=== PATIENT | male | born 1955 | race Caucasian/White ===

== ENCOUNTER 2019-11-05 07:48 | Day surgery (SDC) | payer BC ==
[2019-11-04 16:29] LABS: Absolute Lymphocytes (CBC) 2.4 K/uL (0.7-4.9); Basophils % 0.4 % (0-1.3); Hematocrit 42.4 % (39.6-49.0); Lymphocytes % 20.8 % (15.3-44.8); MPV 8.5 fL (7.6-11.3); RBC Red Blood Cell Count 4.58 M/uL (4.33-5.43)
--- NOTE | 2019-11-04 16:29 | RAD REPORT ---
EXAM DESCRIPTION: RAD - Chest Pa And Lat (2 Views) - 11/04/2019 4:16 pm CLINICAL HISTORY: preop COMPARISON: No comparisons TECHNIQUE: Frontal and lateral views of the chest were obtained. FINDINGS: The lungs are clear. Heart size is normal and central vasculature is within normal limit s. No pleural effusion or pneumothorax seen. No acute bony finding noted. No aortic abnormality. IMPRESSION: No acute cardiopulmonary process.
[2019-11-04 16:47] LABS: Potassium 3.8 mmol/L (3.5-5.1)
[~2019-11-05 07:48] MED LIST: FENTANYL CITR 100 MCG/2 ML ONE; LIDOCAINE 2% MPF 5 ML VIAL ONE; MIDAZOLAM HCL 2 MG/2 ML INJ ONE; propofoL 200 MG/20 ML VIAL IV ONE
[2019-11-05] MEDS ORDERED: Ringers Lactate 1,000 ML IV ONE (08:06)
[2019-11-05] MEDS ORDERED: CEFAZOLIN/SWI 1gm 1 GM/10 ML SYR ONE (08:07)
[2019-11-05] MEDS ORDERED: ONDANSETRON 4 MG/2 ML VIAL ONE (08:59)
[2019-11-05] MEDS: ONDANSETRON 4 MG/2 ML VIAL ONE ×2 (10:12→10:13)
[2019-11-05] MEDS: HYDROMORPHONE HCL 1 MG/ML INJ ONE ×5 (10:15→10:32)
[2019-11-05] MEDS ORDERED: HYDROCODONE/APAP 7.5/325 MG TAB ONE (11:24)
[2019-11-05 11:27] VITALS: BP 132/62; TEMP 98.4; O2SAT 98
--- NOTE | 2019-11-05 12:18 | OP ---
Date of Procedure: 11/05/2019 Surgeon: Miquel Baez MD Preoperative Diagnosis: Inflamed sebaceous cyst on the back. Postoperative Diagnosis: Inflamed sebaceous cyst on the back. Procedure: Wide excision, back mass, 8 x 4 cm, with layered closure. Estimated Blood Loss: Minimal. Specimen: Inflamed sebaceous cyst. Findings: As above. Anesthesia: General. Complications: None. Disposition: Patient tolerated the procedure in stable condition, taken to Recovery in good general condition. Procedure In Detail: Patient was brought to the OR, placed in supine position. General anesthesia b egun. Patient placed in the right lateral position, prepped and draped in the usual sterile fashion. Marcaine 0.5% was infiltrated in a field block fashion. Then, 15 blade was used to make 8 x 4 cm i ncision to excise the entire cyst including the cyst wall in 1 piece down to the subcutaneous tissue and sent to Pathology. Wound irrigated. Bleeding controlled with cautery. A Emiliano drain quarter- inch placed in the wound and secured with 3-0 nylon, then 2-0 chromic used to approximate the subcuta neous tissue, and 2-0 nylon used to close the skin. Sterile dressing was applied. Patient was awake donaldo and taken to Recovery in good general condition. Discharge Note: The patient will be going to Day Surgery in 1 week when stable. Disposition: Home. Condition: Stable. Discharge Instructions: Resume home medications and diet. Activity as tolerated. No heavy lifting. Remove outer dressing in 2 days. Shower. Keep wound clean and dry. Follow up in my office next T , call for appointment. Cipro 500 mg p.o. q.12, Tylenol No. 3 one tablet p.o. q.4 p.r.n. pain. /MODL Voice ID: [id number] Report ID: [id number]
--- NOTE | 2019-11-05 13:45 | EKG ---
Test Date: 2019-11-04 Test Time: 15:54:34 Dentist/Owner: ANA MARIA MEASUREMENT RESULTS: Intervals: Rate: 67 [place]: 166 QRSD: 74 QT: 398 QTc: 420 [place]: P: 45 [place]: 166 QRS: 40 T: 54 INTERPRETIVE STATEMENTS: Normal sinus rhythm Normal ECG No previous ECG available for comparison Electronically Signed On 11-05-19 13:45:06 ELECTRIC NEEDLE SPECIALIST by Soto Padilla
== END 2019-11-05 12:00 | disposition home or self-care (01) ==
LOC: OR 07:48
PROVIDERS: ATTEND Surgery
PROC: 0JB70ZZ Excision of Back Subcutaneous Tissue and Fascia, Open Approach (ICD-10-PCS; principal; 2019-11-05 09:00)
DX: L72.3 Sebaceous cyst (principal); E07.9 Disorder of thyroid, unspecified
CPT/HCPCS: 93005; 85025; 80048; 36415; 88304; 71046; 11406; J2704; J2250; J3010; J1170 ×2; J0690; J7120; J2405 ×2

== ENCOUNTER 2020-12-15 09:57 | Emergency (ER) | payer BC ==
[2020-12-15] MEDS ORDERED: ONDANSETRON 4 MG/2 ML VIAL ONE (10:54)
[2020-12-15] MEDS ORDERED: NA CHLORIDE 0.9% 0 ML ONE (10:54)
[2020-12-15] MEDS ORDERED: MECLIZINE HCL 12.5 MG TAB ONE (10:54)
[2020-12-15] MEDS ORDERED: FAMOTIDINE 20 MG/2 ML VIAL IV ONE (10:54)
[2020-12-15 11:19] LABS: Absolute Lymphocytes (CBC) 0.7 K/uL (0.7-4.9); Basophils % 0.1 % (0-1.3); Hematocrit 42.6 % (39.6-49.0); Lymphocytes % 6.3 % (15.3-44.8); MPV 8.6 fL (7.6-11.3); RBC Red Blood Cell Count 4.54 M/uL (4.33-5.43)
[2020-12-15 11:20] LABS: Protime INR 0.97
[2020-12-15 11:31] LABS: ALT/SGPT 46 U/L (12-78); AST/SGOT 18 U/L (15-37); Albumin 3.7 g/dL (3.4-5.0); Alkaline Phosphatase 78 U/L (45-117); BUN Blood Urea Nitrogen 15 mg/dL (7-18); Bicarbonate 25 mmol/L (21-32); Bilirubin Direct 0.1 mg/dL (0-0.2); Bilirubin Total 0.5 mg/dL (0.2-1.0); Glucose Level 128 mg/dL (74-106); Magnesium 1.9 mg/dL (1.8-2.4); NT PRO-BNP 48 pg/mL (<125); Potassium 3.9 mmol/L (3.5-5.1); Protein, Total 7.2 g/dL (6.4-8.2); Sodium Level 140 mmol/L (136-145); Troponin (Emerg Dept Use Only) < 0.02 ng/mL (0.0-0.045)
--- NOTE | 2020-12-15 11:36 | RAD REPORT ---
EXAM DESCRIPTION: CT - Head Brain Wo Cont - 12/15/2020 11:26 am CLINICAL HISTORY: DIZZINESS Headache, drowsiness COMPARISON: No comparisons TECHNIQUE: All CT scans are performed using dose optimization technique as appropriate and may inclu de automated exposure control or mA/KV adjustment according to patient size. FINDINGS: No intracranial hemorrhage, hydrocephalus or extra-axial fluid collection.No areas of brai n edema or evidence of midline shift. The paranasal sinuses and mastoids are clear. The calvarium is intact. IMPRESSION: No acute intracranial abnormality.
--- NOTE | 2020-12-15 11:38 | RAD REPORT ---
EXAM DESCRIPTION: RAD - Chest Single View - 12/15/2020 11:09 am CLINICAL HISTORY: dizziness Chest pain. COMPARISON: Chest Pa And Lat (2 Views) dated 11/04/2019 FINDINGS: Portable technique limits examination quality. The lungs are grossly clear. The heart is normal in size. No displaced fractures. IMPRESSION: No acute intrathoracic process suspected.
[2020-12-15 11:55] LABS: Blood Morphology Comment NOT SEEN (NOT SEEN); Platelet Estimate ADEQ
--- NOTE | 2020-12-15 13:32 | RAD REPORT ---
EXAM DESCRIPTION: MRI - Brain Wo Cont - 12/15/2020 1:22 pm CLINICAL HISTORY: DIZZINESS COMPARISON: Head Brain Wo Cont dated 12/15/2020 TECHNIQUE: Sagittal T1-weighted images were obtained along with axial PD, heavily T2-weighted and T2 -FLAIR images. Axial DWI and ADC mapping sequences were also obtained along with coronal heavily T2-w eighted images. FINDINGS: No intracranial hemorrhage, mass or acute infarction. There is no edema or shift of midlin e structures. No extra-axial fluid collections. House-matter/white matter junction is preserved. Signa l voids are seen as a normal finding in the major intracranial vessels. Patient has little or no measurable atrophy. Ventricles are normal. Rare punctate T2/IR hyperintense foci seen in the cerebral white matter. These air still within the range of normal but could reflect trace amounts of chronic ischemic change. Mastoid air cells are clear. Paranasal sinuses are clear. No evidence for middle ear fluid. No globe or orbital content abnormality identified. No sella or supra sella abnormality. IMPRESSION: Negative non-contrast MRI of the Brain for acute or significant finding.
[2020-12-15] MEDS ORDERED: DIAZEPAM 10 MG/2 ML INJ SYRINGE ONE (14:58)
[2020-12-15] MEDS ORDERED: SCOPOLAMINE HYDROBROMIDE PATCH TD ONE (15:00)
--- NOTE | 2020-12-15 16:37 | ER ---
Nurse's Notes [facility] Name: Bakari Baldwin Age: 65 yrs Sex: Male : 1955 Arrival Date: 12/15/2020 Time: 10:00 Bed 7 Private MD: Diagnosis: Dizziness and giddiness Presentation: 12/15 10:03 Chief complaint: EMS states: DIZZINESS WITH N/V SINCE 0500. Coronavirus screen: At this bp time, the client does not indicate any symptoms associated with coronavirus-19. Ebola Screen: No symptoms or risks identified at this time. Initial Sepsis Screen: Does the patient meet any 2 criteria? No. Patient's initial sepsis screen is negative. Does the patient have a suspected source of infection? No. Patient's initial sepsis screen is negative. Risk Assessment: Do you want to hurt yourself or someone else? Patient reports no desire to harm self or others. Onset of symptoms was December 15, 2020 at 05:00. Care prior to arrival: Medication(s) given: 10 MG REGLAN IV initiated. 20 GA, in the left antecubital area. 10:03 Method Of Arrival: EMS: [facility] bp 10:03 Acuity: JOHANA 3 bp Triage Assessment: 10:06 General: Appears distressed, uncomfortable, Behavior is cooperative, appropriate for bp age, anxious. Pain: Denies pain. EENT: No deficits noted. Neuro: Reports dizziness, photophobia. Cardiovascular: Rhythm is sinus bradycardia. Respiratory: No deficits noted. GI: Reports nausea. : No signs and/or symptoms were reported regarding the genitourinary system. Derm: No deficits noted. Musculoskeletal: No deficits noted. Historical: - Allergies: 10:06 No Known Allergies; bp - Home Meds: 10:06 allopurinol 100 mg oral tab 1 tab once daily [Active]; levothyroxine 50 mcg oral tab 1 bp tab once daily [Active]; - PMHx: 10:06 Gout; Hyperlipidemia; Hypothyroidism; bp - Immunization history:: Adult Immunizations up to date. - Social history:: Smoking status: Patient denies any tobacco usage or history of. Screenin:07 Abuse screen: Denies threats or abuse. Denies injuries from another. Nutritional bp screening: No deficits noted. Tuberculosis screening: No symptoms or risk factors identified. Fall Risk None identified. Assessment: 10:07 General: SEE TRIAGE NOTE. bp 12:00 Reassessment: No changes from previously documented assessment. Patient and/or family bp updated on plan of care and expected duration. Pain level reassessed. Patient is alert, oriented x 3, equal unlabored respirations, skin warm/dry/pink. 13:21 Reassessment: No changes from previously documented assessment. Patient and/or family bp updated on plan of care and expected duration. Pain level reassessed. MRI PENDING. 14:30 Reassessment: Patient and/or family updated on plan of care and expected duration. Pain bp level reassessed. Patient is alert, oriented x 3, equal unlabored respirations, skin warm/dry/pink. PT RETURNED FROM MRI, RESULTS PENDING. 15:30 Reassessment: PT STILL ENDORSES DIZZINESS, BUT ABLE TO AMBULATE WITH STEADY GAIT. bp PROVIDER NOTIFIED. GI: Abdomen is non-distended. 16:44 Reassessment: PT D/C HOME VIA W/C WITH FAMILY, DX WITH VERTIGO. bp Vital Signs: 10:03 BP 155 / 86; Pulse 55; Resp 26; Temp 98.4; Pulse Ox 100% ; bp 11:03 BP 146 / 94; Pulse 60; Resp 18; Pulse Ox 99% ; jl7 12:09 BP 126 / 68; Pulse 58; Resp 13; Pulse Ox 99% ; jl7 13:22 BP 155 / 80; Pulse 54; Resp 17; Pulse Ox 100% ; bp 15:10 BP 148 / 84; Pulse 62; Resp 17; Pulse Ox 100% ; jl7 16:45 BP 127 / 59; Pulse 58; Resp 16; Temp 98.5; Pulse Ox 100% ; bp ED Course: 10:00 Patient arrived in ED. tw4 10:01 Jay Barclay MD is Attending Physician. tw4 10:02 Ander Espinoza, MARYCRUZ is Primary Nurse. bp 10:05 Harris Carl PA is PHCP. cp 10:05 Triage completed. bp 10:06 Arm band placed on. bp 10:07 Patient has correct armband on for positive identification. Bed in low position. Call bp light in reach. Side rails up X2. 10:07 Maintain EMS IV. Dressing intact. Good blood return noted. Site clean \T\ dry. Gauge \T\ bp site: 20 GA LEFT AC. 10:25 EKG done, by ED staff, reviewed by Jay Barclay MD. 5 10:36 Warm blanket given. pvc monitor on. Pulse ox on. NIBP on. 5 11:09 XRAY Chest (1 view) In Process Unspecified. EDMS 11:26 CT Head Brain wo Cont In Process Unspecified. EDMS 13:22 MRI - Brain Wo Cont In Process Unspecified. EDMS 16:36 Baron Plaza MD is Referral Physician. cp 16:45 No provider procedures requiring assistance completed. IV discontinued, intact, bp bleeding controlled, No redness/swelling at site. Pressure dressing applied. Administered Medications: 10:30 Drug: Meclizine 25 mg Route: PO; bp 10:30 Drug: Zofran (Ondansetron) 4 mg Route: IVP; Site: left antecubital; bp 10:30 Drug: Pepcid (famotidine) 20 mg Route: IVP; Site: left antecubital; bp 16:46 Follow up: Response: No adverse reaction bp 10:30 Drug: NS 0.9% 1000 ml Route: IV; Rate: 1 bolus; Site: left antecubital; bp 11:30 Follow up: IV Status: Completed infusion; IV Intake: 1000ml bp 14:42 Drug: Valium (diazepam) 5 mg Route: IVP; Site: left antecubital; bp 15:53 Follow up: Response: Marked relief of symptoms bp 15:53 Drug: Transderm-Scop 1 patches Route: Transdermal; Site: affected area; bp Intake: 11:30 IV: 1000ml; Total: 1000ml. bp Outcome: 16:36 Discharge ordered by . cp 16:45 Discharged to home via wheelchair, with family. bp 16:45 Condition: stable 16:45 Discharge instructions given to patient, Instructed on discharge instructions, follow up and referral plans. medication usage, Demonstrated understanding of instructions, follow-up care, medications, Prescriptions given X 2. 16:51 Patient left the ED. bp Signatures: Dispatcher [employer] EDMD Harris Carl PA PA cp Martinez, Maria 5 Jarrell Rosen, RN RN jl7 Ander Espinoza RN RN Jay Horn MD MD tw4
--- NOTE | 2020-12-15 16:37 | EDPHYS ---
Physician Documentation [facility] Name: Bakari Baldwin Age: 65 yrs Sex: Male : 1955 Arrival Date: 12/15/2020 Time: 10:00 Bed 7 Private MD: ED Physician Jay Barclay HPI: 12/15 10:15 This 65 yrs old Male presents to ER via EMS with complaints of Dizziness, cp Nausea/Vomiting. 10:15 The patient presents with dizziness, sense of spinning. Onset: The symptoms/episode cp began/occurred this morning, at 05:00. Associated signs and symptoms: Pertinent positives: nausea, vomiting. 10:15 Patient's baseline: Neuro: alert and fully oriented, Motor: no deficits, Ambulation: cp walks without assistance, Speech: normal. Historical: - Allergies: 10:06 No Known Allergies; bp - Home Meds: 10:06 allopurinol 100 mg oral tab 1 tab once daily [Active]; levothyroxine 50 mcg oral tab 1 bp tab once daily [Active]; - PMHx: 10:06 Gout; Hyperlipidemia; Hypothyroidism; bp - Immunization history:: Adult Immunizations up to date. - Social history:: Smoking status: Patient denies any tobacco usage or history of. ROS: 10:20 Neuro: Positive for dizziness. cp 10:20 Abdomen/GI: Positive for nausea and vomiting, Negative for abdominal pain, diarrhea, cp constipation, hematemesis, black/tarry stool, rectal bleeding. 10:20 Constitutional: Negative for body aches, chills, fever. cp 10:20 Cardiovascular: Negative for chest pain, edema, palpitations. 10:20 Eyes: Positive for photophobia. cp 10:20 ENT: Negative for ear pain, sore throat, difficulty swallowing, difficulty handling secretions. 10:20 Neck: Negative for pain with movement, pain at rest, stiffness. 10:20 All other systems are negative. Exam: 10:25 Constitutional: The patient appears in no acute distress, alert, awake, cp non-diaphoretic, non-toxic, well developed, well nourished. 10:25 Head/Face: Normocephalic, atraumatic. cp 10:25 Eyes: Periorbital structures: appear normal, Pupils: equal, round, and reactive to light and accomodation, Extraocular movements: intact throughout, Conjunctiva: normal, no exudate, no injection, Sclera: no appreciated abnormality, Lids and lashes: appear normal, bilaterally, Nystagmus: nystagmus with fast component noted, bilaterally. 10:25 ENT: External ear(s): are unremarkable, Ear canal(s): are normal, clear, TM's: dullness, bilaterally, Nose: is normal, Mouth: Lips: moist, Oral mucosa: moist, Posterior pharynx: Airway: no evidence of obstruction, patent, erythema, is not appreciated, exudate, is not appreciated. 10:25 Neck: ROM/movement: is normal, is supple, without pain, no range of motions limitations, no meningismus. 10:25 Chest/axilla: Inspection: normal, Palpation: is normal, no crepitus, no tenderness. 10:25 Cardiovascular: Rate: bradycardic, Rhythm: regular, Edema: is not appreciated, JVD: is not appreciated. 10:25 Respiratory: the patient does not display signs of respiratory distress, Respirations: normal, no use of accessory muscles, no retractions, labored breathing, is not present, Breath sounds: are clear throughout. 10:25 Abdomen/GI: Inspection: abdomen appears normal, Palpation: abdomen is soft and non-tender, in all quadrants. 10:25 Neuro: Orientation: to person, place \T\ time. Mentation: is normal, Cerebellar function: is grossly normal, Motor: moves all fours, strength is normal, Sensation: is normal. 10:40 ECG was reviewed by the Attending Physician. cp Vital Signs: 10:03 BP 155 / 86; Pulse 55; Resp 26; Temp 98.4; Pulse Ox 100% ; bp 11:03 BP 146 / 94; Pulse 60; Resp 18; Pulse Ox 99% ; jl7 12:09 BP 126 / 68; Pulse 58; Resp 13; Pulse Ox 99% ; jl7 13:22 BP 155 / 80; Pulse 54; Resp 17; Pulse Ox 100% ; bp 15:10 BP 148 / 84; Pulse 62; Resp 17; Pulse Ox 100% ; jl7 16:45 BP 127 / 59; Pulse 58; Resp 16; Temp 98.5; Pulse Ox 100% ; bp MDM: 10:01 Patient medically screened. tw4 11:00 Differential diagnosis: cardiac arrhythmia, GI bleed, hypovolemia, idiopathic cp dizziness, vertigo. 16:35 Data reviewed: vital signs, nurses notes, lab test result(s), EKG, radiologic studies, cp CT scan, MRI. 16:35 Test interpretation: by ED physician or midlevel provider: ECG. 16:35 Counseling: I had a detailed discussion with the patient and/or guardian regarding: the cp historical points, exam findings, and any diagnostic results supporting the discharge/admit diagnosis, lab results, radiology results, the need for outpatient follow up, a neurologist, to return to the emergency department if symptoms worsen or persist or if there are any questions or concerns that arise at home. 16:35 Response to treatment: the patient's symptoms have markedly improved after treatment, cp VSS. Dizziness and nausea markedly improved and vomiting resolved. Will discharge to home for continued monitoring. 12/15 10:12 Order name: Basic Metabolic Panel; Complete Time: 11:45 12/15 12:03 Interpretation: Normal except: GLUC 128. 12/15 10:12 Order name: CBC with Diff; Complete Time: 12:02 cp 12/15 12:03 Interpretation: Normal except: WBC 11.60; DILAN% 90.8; LYM% 6.3; MN% 2.7; NEUT A 10.5. cp 12/15 10:12 Order name: LFT's; Complete Time: 11:45 cp 12/15 10:12 Order name: Magnesium; Complete Time: 11:45 cp 12/15 10:12 Order name: NT PRO-BNP; Complete Time: 11:45 cp 12/15 10:12 Order name: PT-INR; Complete Time: 11:45 cp 12/15 10:12 Order name: Troponin (emerg Dept Use Only); Complete Time: 11:45 cp 12/15 10:12 Order name: XRAY Chest (1 view); Complete Time: 11:45 cp 12/15 10:12 Order name: CT Head Brain wo Cont; Complete Time: 11:45 cp 12/15 11:39 Order name: Manual Differential; Complete Time: 12:02 EDMS 12/15 11:46 Order name: MRI - Brain Wo Cont; Complete Time: 13:38 cp 12/15 12:30 Order name: SARS-COV-2 RT PCR; Complete Time: 13:38 EDMS 12/15 10:12 Order name: EKG; Complete Time: 10:57 cp 12/15 10:12 Order name: Cardiac monitoring; Complete Time: 10:19 cp 12/15 10:12 Order name: EKG - Nurse/Tech; Complete Time: 10:25 cp 12/15 10:12 Order name: IV Saline Lock; Complete Time: 10:19 cp 12/15 10:12 Order name: Labs collected and sent; Complete Time: 11:07 cp 12/15 10:12 Order name: O2 Per Protocol; Complete Time: 10:19 cp 12/15 10:12 Order name: O2 Sat Monitoring; Complete Time: 10:19 cp 12/15 13:39 Order name: Misc. Order: ambulate patient; Complete Time: 14:42 cp 12/15 14:38 Order name: PO challenge; Complete Time: 14:42 cp EC:40 Rate is 60 beats/min. Rhythm is regular. FL interval is normal. QRS interval is normal. cp QT interval is normal. T waves are Inverted in leads aVR, V2. Interpreted by me. Reviewed by me. Administered Medications: 10:30 Drug: Meclizine 25 mg Route: PO; bp 10:30 Drug: Zofran (Ondansetron) 4 mg Route: IVP; Site: left antecubital; bp 10:30 Drug: Pepcid (famotidine) 20 mg Route: IVP; Site: left antecubital; bp 16:46 Follow up: Response: No adverse reaction bp 10:30 Drug: NS 0.9% 1000 ml Route: IV; Rate: 1 bolus; Site: left antecubital; bp 11:30 Follow up: IV Status: Completed infusion; IV Intake: 1000ml bp 14:42 Drug: Valium (diazepam) 5 mg Route: IVP; Site: left antecubital; bp 15:53 Follow up: Response: Marked relief of symptoms bp 15:53 Drug: Transderm-Scop 1 patches Route: Transdermal; Site: affected area; bp Disposition: 17:00 Chart complete. cp 18:47 Co-signature as Attending Physician, Jay Barclay MD I agree with the assessment and tw4 plan of care. Disposition: 12/15/20 16:36 Discharged to Home. Impression: Dizziness and giddiness. - Condition is Stable. - Discharge Instructions: Dizziness, Vertigo. - Prescriptions for Meclizine 25 mg Oral Tablet - take 1 tablet by ORAL route every 8 hours As needed; 30 tablet. Zofran 4 mg Oral Tablet - take 1 tablet by ORAL route every 12 hours As needed; 20 tablet. - Medication Reconciliation Form, Thank You Letter, Antibiotic Education, Prescription Opioid Use form. - Follow up: Baron Plaza MD; When: 2 - 3 days; Reason: Recheck today's complaints. - Problem is new. - Symptoms have improved. Signatures: Dispatcher [employer] EDMS Harris Carl PA PA cp Ander Espinoza, RN RN bp Jay Barclay MD MD tw4 Corrections: (The following items were deleted from the chart) 11:30 10:57 CORONAVIRUS+MR.LAB.BRZ ordered. EDMD EDMS 11:39 11:22 CBC Smear Scan ordered. EDMD EDMS 16:51 16:36 12/15/2020 16:36 Discharged to Home. Impression: Dizziness and giddiness. bp Condition is Stable. Forms are Medication Reconciliation Form, Thank You Letter, Antibiotic Education, Prescription Opioid Use. Follow up: Baron Plaza; When: 2 - 3 days; Reason: Recheck today's complaints. Problem is new. Symptoms have improved. cp
[2020-12-15 16:59] VITALS: O2SAT 100
[2020-12-15 17:02] VITALS: BP 127/59; TEMP 98.5
== END 2020-12-15 16:51 | disposition home or self-care (01) ==
LOC: ER 09:57
DX: R42 Dizziness and giddiness (principal); Z20.822 Contact with and (suspected) exposure to COVID-19; R11.2 Nausea with vomiting, unspecified; E78.5 Hyperlipidemia, unspecified; E03.9 Hypothyroidism, unspecified
CPT/HCPCS: 96361; 93005; 85025; 80048; 36415; 83735; 85610; 80076; 84484; 83880; 70450; 71045; 70551; 96375; 96374; 99284; U0003; J3360; J2405; J7030

== ENCOUNTER 2024-10-05 10:17 | Inpatient (IN) | payer OTHER ==
[2024-10-05] MEDS ORDERED: MECLIZINE HCL 12.5 MG TAB ONE (10:57)
[2024-10-05 11:00] LABS: Absolute Eosinophils 0.1 K/uL (0-0.5); Absolute Lymphocytes (CBC) 0.5 K/uL (0.7-4.9); Absolute Monocytes 0.5 K/uL (0.1-1.3); Absolute Neutrophil 9.4 K/uL (1.8-8.0); Basophils % 0.2 % (0-1.3); Eosinophils % 0.5 % (0-4.4); Hematocrit 43.8 % (39.6-49.0); Hemoglobin 15.9 g/dL (13.6-17.9); Lymphocytes % 4.4 % (15.3-44.8); MCH 34.1 pg (27.0-35.0); MCHC 36.2 g/dL (32.0-36.0); MCV 94.2 fL (80-100); Monocytes % 5.1 % (3.3-12.3); Neutrophils % 89.8 % (41.7-73.7); Platelets 221 thou/uL (152-406); RBC Red Blood Cell Count 4.65 M/uL (4.33-5.43); Red Cell Distribution Width 12.7 % (12.1-15.2)
[2024-10-05 11:24] LABS: BUN Blood Urea Nitrogen 13 mg/dL (7-18); Bicarbonate 25 mEq/L (21-32); Glomerular Filtration Rate 74 ml/min (=/>90); Glucose Level 163 mg/dL (74-106); Magnesium 1.7 mg/dL (1.6-2.4); Sodium Level 135 mEq/L (136-145)
[2024-10-05 11:25] LABS: Troponin High Sensitivity < 3.0 pg/mL (<58.9)
[2024-10-05] MEDS ORDERED: PROMETHAZINE INJ 25 MG/ML AMP ONE (11:33)
--- NOTE | 2024-10-05 11:38 | RAD REPORT ---
EXAMINATION: ONE VIEW CHEST XR CLINICAL INDICATION: Male, 68 years old.,dizzines TECHNIQUE: Frontal chest projection is submitted. Examination is limited by patient positioning and t echnique. COMPARISON: 12/15/2020 FINDINGS: The lungs are well inflated and clear. No pneumothorax or sizable effusion. The heart is normal in s ize. Mediastinal contours are unremarkable. IMPRESSION: No acute intrathoracic abnormalities.
--- NOTE | 2024-10-05 12:08 | RAD REPORT ---
EXAM: CT Stroke Brain Wo Cont HISTORY: STROKE ALERT COMPARISON: 12/15/2020 TECHNIQUE: Multiple contiguous axial images were obtained for a CT of the brain without contrast. Sag ittal and coronal reformats were performed. One or more of the following dose reduction techniques were used: Automated exposure control, adjus tment of the mA and kV according to patient size, and iterative reconstruction. Unless otherwise specified, incidental findings do not require dedicated imaging follow-up. FINDINGS: No evidence of hydrocephalus, intracranial hemorrhage, or extra-axial fluid collection. The brain is normal in morphology. The calvarium is intact. The visualized paranasal sinuses and mastoid air cells are essentially clear . IMPRESSION: No evidence of acute intracranial abnormality. THIS REPORT CONTAINS FINDINGS THAT MAY BE CRITICAL TO PATIENT CARE. The findings were verbally commun icated via telephone to Cody Booker on 10/05/2024 12:05 PM.
--- NOTE | 2024-10-05 12:19 | RAD REPORT ---
EXAMINATION: CTA HEAD CLINICAL INDICATION: Male, 68 years old. DIZZINESS TECHNIQUE: Axial CT images were obtained through the head after intravenous contrast utilizing angiog raphic protocol with 3D post-processing (maximum intensity projection images, volume rendered images and/or shaded surface rendered images). One or more of the following dose reduction technique s were used: Automated exposure control, adjustment of the mA and/or kV according to patient size, and/or iterative reconstruction. Unless otherwise specified, incidental findings do not require dedic ated imaging follow-up. COMPARISON: Noncontrast head CT of the same day. FINDINGS: ICA: The petrous, cavernous, and supraclinoid segments of the bilateral internal carotid arteries are normal. ENRIQUE: Anterior cerebral arteries are normal bilaterally. The anterior communicating artery is patent. MCA: Middle cerebral arteries are normal bilaterally. WALLPAPER CONSULTANT: Posterior cerebral arteries are normal bilaterally. Vertebrobasilar: The vertebral arteries are patent. The basilar artery is normal in appearance. Persi stent basilar to left internal carotid anastomosis, communicating with the junction of the petrous and cavernous segments, suggesting a trigeminal artery. 3D images confirm these findings. IMPRESSION: No evidence of large vessel occlusion or clinically significant stenosis. 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 THIS REPORT CONTAINS FINDINGS THAT MAY BE CRITICAL TO PATIENT CARE. The findings were verbally commun icated via telephone to Cody Booker on 10/05/2024 12:05 PM..
--- NOTE | 2024-10-05 12:22 | RAD REPORT ---
EXAMINATION: CT Neck Angio CLINICAL INDICATION: Male, 68 years old. [facility] MAIN dizzines Bed Name: 17 TECHNIQUE: Axial CT images were obtained from the aortic arch to the skull base after intravenous con trast utilizing angiographic protocol. Multiplanar reformats, as well as 3D post-processing (maximum intensity projection images, volume rendered images and/or shaded surface rendered images) w ere generated and reviewed. One or more of the following dose reduction techniques were used: Automated exposure control, adjustment of the mA and/or kV according to patient size, and/or iterativ e reconstruction. Unless otherwise specified, incidental findings do not require dedicated imaging follow-up. COMPARISON: Noncontrast head CT of the same day. FINDINGS: AORTA: The imaged aortic arch is normal. Variant anatomy of the arch with left vertebral artery arisi ng directly from the arch. CCA: No artifact The common carotid arteries are patent and normal in caliber. ICA/ECA: Mild to moderate calcific atherosclerotic plaque along the proximal ICAs bilaterally without significant stenosis. Bilateral internal and external carotid arteries are patent. There is no significant internal carotid artery stenosis. VERTEBRAL: The cervical vertebral arteries are patent to the skull base. Vertebral arteries are codom inant. SOFT TISSUE: No significant neck soft tissue abnormalities. The visualized lung apices are clear. 3D images confirm these findings. IMPRESSION: No significant flow abnormality of the neck vessels is identified. NASCET criteria used to quantify ICA stenosis, with the following grading scheme: Mild 0-49% stenosis Moderate 50-69% stenosis Severe 70-99% stenosis Reference: [place] Symptomatic Carotid Endarterectomy Trial Collaborators; Shasta ALFARO, Liza DW, Sarita RB, et al. Beneficial effect of carotid endarterectomy in symptomatic patients with high-grade carotid stenosis. N Engl J Med. 1990Apr 15;325(7):445-53.
[2024-10-05 12:26] LABS: Blood Morphology Comment NOT SEEN (NOT SEEN); Platelet Estimate ADEQ; Platelets, Giant FEW PRESENT; White Blood Cell Scan OK (OK)
[2024-10-05 12:27] LABS: PT Prothrombin Time 10.9 SECONDS (9.4-12.5); PTT, Activated Partial Thromb 25.9 SECONDS (24.3-36.9); Protime INR 1.04
[2024-10-05] MEDS ORDERED: DIAZEPAM 10 MG/2 ML INJ SYRINGE ONE (12:32)
--- NOTE | 2024-10-05 12:36 | EDPHYS ---
Physician Documentation [facility] Name: Bakari Baldwin Age: 68 yrs Sex: Male : 1955 Arrival Date: 10/05/2024 Time: 10:17 Bed 24 Private MD: ED Physician Michael Qiuntana HPI: 10/05 10:47 This 68 yrs old Male presents to ER via EMS with complaints of Dizziness. ms3 10:47 Bakari Baldwin presents to the Emergency Department with dizziness and nausea. The patient ms3 reports a history of vertigo and high blood pressure. He describes the current episode of dizziness as being similar to a previous episode, which took about three weeks to resolve. The dizziness worsens with movement and is worse turning his head to the right. There is no associated numbness or weakness. The patient has vomited due to the nausea. He has been administered 4 mg of Zofran for nausea by [facility] prior to arrival. Historical: - Allergies: 10:24 No Known Allergies; me1 - Home Meds: 19:14 allopurinol 100 mg Oral tab 1 tab once daily [Active]; levothyroxine 50 mcg tab 1 tab aa10 once daily [Active]; - PMHx: 10:24 Gout; Hyperlipidemia; Hypothyroidism; vertigo (Hypothyroidism); me1 - Immunization history:: Adult Immunizations up to date. - Infectious Disease History:: Denies. - Social history:: Smoking status: Patient/guardian denies using tobacco, but has a distant history of tobacco abuse. ROS: 10:47 Constitutional: Negative for fever, and chills. Cardiovascular: Negative for chest ms3 pain, and palpitations. Respiratory: Negative for shortness of breath, cough, wheezing, and pleuritic chest pain, 10:47 MS/Extremity: Negative for injury and deformity, Skin: Negative for injury, rash, and discoloration, 10:47 Abdomen/GI: Positive for nausea and vomiting, Exam: 10:47 Constitutional: This is a well developed, well nourished patient who is awake, alert, ms3 and in no acute distress. Cardiovascular: Regular rate and rhythm with a normal S1 and S2. No gallops, murmurs, or rubs. Normal PMI, no JVD. No pulse deficits. Respiratory: Lungs have equal breath sounds bilaterally, clear to auscultation and percussion. No rales, rhonchi or wheezes noted. No increased work of breathing, no retractions or nasal flaring. Abdomen/GI: Soft, non-tender, with normal bowel sounds. No distension or tympany. No guarding or rebound. No evidence of tenderness throughout. Skin: Warm, dry with normal turgor. Normal color with no rashes, no lesions, and no evidence of cellulitis. 10:47 Neuro: Orientation: is normal, to person, place, time \T\ situation. Mentation: is normal, Memory: is normal, Cranial nerves: CN I not tested, CN II- XII are normal as tested, Cerebellar function: normal finger to nose testing, Sensation: is normal, no obvious gross deficits, 11:48 ECG was reviewed by the Attending Physician. ms3 Vital Signs: 10:19 BP 121 / 74; Pulse 101; Resp 16; Temp 97.5; Pulse Ox 100% ; Weight 95.25 kg; Height 5 me1 ft. 10 in. ; 10:30 BP 113 / 77; Pulse 98; Resp 16; Pulse Ox 99% ; me1 11:00 BP 122 / 85; Pulse 99; Resp 16; Pulse Ox 99% ; me1 11:30 BP 129 / 85; Pulse 99; Resp 16; Pulse Ox 98% ; me1 12:00 BP 127 / 90; Pulse 101; Resp 17; Pulse Ox 97% ; me1 12:30 BP 134 / 87; Pulse 109; Resp 16; Pulse Ox 96% ; me1 13:00 BP 130 / 85; Pulse 108; Resp 16; Pulse Ox 97% ; me1 13:30 BP 139 / 87; Pulse 113; Resp 16; Pulse Ox 97% ; me1 14:00 BP 128 / 70; Pulse 113; Resp 16; Pulse Ox 98% ; me1 19:15 BP 141 / 93; Pulse 102; Resp 20; Temp 98.6; Pulse Ox 98% on R/A; aa10 10:19 Body Mass Index 30.13 (95.25 kg, 177.8 cm) me1 NIH Stroke Scale Scores: 10:26 NIHSS Score: 0 me1 11:43 NIHSS Score: 0 ms3 MDM: 10:19 Medical Screening Exam initiated ms3 10:47 Differential diagnosis: cardiac arrhythmia, TIA, vertigo. ms3 11:43 ED course: Patient EKG shows atrial fibrillation. Patient states he is unable to take ms3 Meclizine. He states his dizziness has improved and it is worse when looking to the right. Likely BPV; however, will obtain stroke CTs.. 12:19 ED course: Negative HINTS exam.. ms3 12:22 ED course: Discussed TNKase with patient and his significant other. Through shared ms3 decision making decision making patient does not wish to receive TNKase.. 14:09 Data reviewed: vital signs, nurses notes, lab test result(s), EKG, radiologic studies, ms3 and as a result, I will admit patient. Consideration of Admission/Observation Patient was admitted/placed on observation. Management of patient was discussed with the following: Hospitalist: Dr Can. Biometrics Experimentalist: Dr Plaza. I considered the following discharge prescriptions or medication management in the emergency department Medications were administered in the Emergency Department. See MAR. Independent interpretation of the following test(s) in the Emergency Department EKG: See my EKG interpretation above. Historians other than the Patient: EMS: [facility]. Counseling: I had a detailed discussion with the patient and/or guardian regarding the historical points, exam findings, and any diagnostic results supporting the discharge/admit diagnosis, lab results, radiology results, the need for further work-up and treatment in the hospital. 10/05 10:19 Order name: Basic Metabolic Panel; Complete Time: 11:57 ms3 10/05 10:19 Order name: CBC with Diff; Complete Time: 12:28 ms3 10/05 10:19 Order name: Magnesium; Complete Time: 11:57 ms3 10/05 10:19 Order name: Troponin HS; Complete Time: 11:57 ms3 10/05 10:55 Order name: Flu; Complete Time: 12:28 ms3 10/05 11:42 Order name: Protime (+inr); Complete Time: 12:28 ms3 10/05 11:42 Order name: Ptt, Activated; Complete Time: 12:28 ms3 10/05 12:13 Order name: CREATININE WHOLE BLOOD; Complete Time: 12:19 EDMS 10/05 12:27 Order name: CBC Smear Scan; Complete Time: 12:28 EDMS 10/05 14:17 Order name: T4 Free; Complete Time: 15:35 EDMS 10/05 14:17 Order name: Thyroid Stimulating Hormone; Complete Time: 15:35 EDMS 10/05 14:17 Order name: Urinalysis w/ reflexes EDMS 10/05 14:17 Order name: Basic Metabolic Panel EDMS 10/05 14:17 Order name: Basic Metabolic Panel; Complete Time: 15:35 EDMS 10/05 14:17 Order name: Basic Metabolic Panel; Complete Time: 15:35 EDMS 10/05 14:17 Order name: Basic Metabolic Panel EDMS 10/05 14:17 Order name: CBC with Automated Diff EDMS 10/05 14:17 Order name: CBC with Automated Diff; Complete Time: 15:35 EDMS 10/05 14:17 Order name: CBC with Automated Diff; Complete Time: 15:35 EDMS 10/05 14:17 Order name: CBC with Automated Diff EDMS 10/05 14:17 Order name: Lipid Profile EDMS 10/05 14:17 Order name: Lipid Profile; Complete Time: 15:35 EDMS 10/05 14:17 Order name: Magnesium EDMS 10/05 14:17 Order name: Magnesium; Complete Time: 15:35 EDMS 10/05 14:17 Order name: Magnesium; Complete Time: 15:35 EDMS 10/05 14:17 Order name: Magnesium EDMS 10/05 14:17 Order name: Phosphorus EDMS 10/05 14:17 Order name: Phosphorus; Complete Time: 15:35 EDMS 10/05 14:17 Order name: Phosphorus; Complete Time: 15:35 EDMS 10/05 14:17 Order name: Phosphorus EDMS 10/05 14:17 Order name: Troponin High Sensitivity EDMS 10/05 14:17 Order name: Troponin High Sensitivity; Complete Time: 15:35 EDMS 10/05 14:17 Order name: Troponin High Sensitivity; Complete Time: 15:35 EDMS 10/05 14:19 Order name: Urinalysis W/Microscopic; Complete Time: 20:23 EDMS 10/05 14:19 Order name: Urine Drug Screen; Complete Time: 20:23 EDMS 10/05 10:19 Order name: XRAY Chest (1 view); Complete Time: 11:57 ms3 10/05 11:42 Order name: CT Stroke Brain w/o Contrast; Complete Time: 12:09 ms3 10/05 11:42 Order name: CT Head Angio; Complete Time: 12:19 ms3 10/05 11:42 Order name: CT Neck Angio; Complete Time: 12:23 ms3 10/05 21:29 Order name: MRI; Complete Time: 15:35 EDMS 10/05 10:19 Order name: Cardiac monitoring; Complete Time: 11:45 ms3 10/05 10:19 Order name: EKG - Nurse/Tech; Complete Time: 11:45 ms3 10/05 10:19 Order name: IV Saline Lock; Complete Time: 10:53 ms3 10/05 10:19 Order name: Labs collected and sent; Complete Time: 10:53 ms3 10/05 10:19 Order name: O2 Per Protocol; Complete Time: 10:53 ms3 10/05 10:19 Order name: O2 Sat Monitoring; Complete Time: 10:53 ms3 10/05 11:42 Order name: Accucheck; Complete Time: 12:29 ms3 10/05 11:42 Order name: NPO; Complete Time: 12:05 ms3 10/05 11:42 Order name: Stroke Swallow Screen; Complete Time: 23:51 ms3 EC:48 Rate is 94 beats/min. Rhythm is irregularly irregular. QRS Campbell is Normal. QRS interval ms3 is normal. Clinical impression: Atrial Fibrillation. Interpreted by me. Reviewed by me. Administered Medications: 12:22 Drug: Meclizine PO 50 mg PO once Route: PO; me1 14:20 Follow up: Response: No adverse reaction; Marked relief of symptoms hi1 12:41 Drug: Diazepam IM 5 mg IM once {Note: given IV to LAC per verbal from Dr Quintana.} Route: me1 IM; Site: Other; 14:20 Follow up: Response: No adverse reaction me1 Disposition Summary: 10/05/24 12:35 Hospitalization Ordered Notes: Hospitalization Status: Inpatient Admission ms3 Provider: Nickolas Tesfaye ms3 Condition: Stable ms3 Problem: new ms3 Symptoms: are unchanged ms3 Bed/Room Type: Standard ms3 Location: Telemetry/MedSurg (observation)(10/06/24 22:41) rv1 Room Assignment: 224(10/06/24 22:41) rv1 Diagnosis - Other peripheral vertigo, right ear ms3 - Unspecified atrial fibrillation ms3 Forms: - Medication Reconciliation Form ms3 - SBAR form ms3 - Leadership Thank You Letter ms3 [facility] Stroke Scale - NIH Stroke Score Date: 10/05/2024 Time: 10:26 Total Score = 0 10. Dysarthria (speech clarity - read or repeat words) - 0(Normal) 11. Extinction and Inattention (visual/tactile/auditory/spatial/personal) - 0(No abnormality) 1a. Level of Consciousness (LOC) - 0(Alert) 1b. Level of Consciousness (LOC) (Month \T\ Age) - 0(Both) 1c. LOC Commands (Open \T\ Closes Eyes/Recovery Agent) - 0(Both) 2. Best Gaze (Lateral Gaze Paresis) - 0(Normal) 3. Visual Field Loss - 0(No visual loss) 4. Facial Palsy - 0(Normal) 5a. Left Arm: Motor (10-second hold) - 0(No drift) 5b. Right Arm: Motor (10-second hold) - 0(No drift) 6a. Left Leg: Motor (5-second hold - always test supine) - 0(No drift) 6b. Right Leg: Motor (5-second hold - always test supine) - 0(No drift) 7. Limb Ataxia (finger/nose \T\ heel/esposito - test with eyes open) - 0(Absent) 8. Sensory Loss (pinprick arms/legs/face) - 0(Normal) 9. Best Language: Aphasia (description/naming/reading) - 0(No aphasia) Initials: me1 NIH Stroke Scale - NIH Stroke Score Date: 10/05/2024 Time: 11:43 Total Score = 0 10. Dysarthria (speech clarity - read or repeat words) - 0(Normal) 11. Extinction and Inattention (visual/tactile/auditory/spatial/personal) - 0(No abnormality) 1a. Level of Consciousness (LOC) - 0(Alert) 1b. Level of Consciousness (LOC) (Month \T\ Age) - 0(Both) 1c. LOC Commands (Open \T\ Closes Eyes/Recovery Agent) - 0(Both) 2. Best Gaze (Lateral Gaze Paresis) - 0(Normal) 3. Visual Field Loss - 0(No visual loss) 4. Facial Palsy - 0(Normal) 5a. Left Arm: Motor (10-second hold) - 0(No drift) 5b. Right Arm: Motor (10-second hold) - 0(No drift) 6a. Left Leg: Motor (5-second hold - always test supine) - 0(No drift) 6b. Right Leg: Motor (5-second hold - always test supine) - 0(No drift) 7. Limb Ataxia (finger/nose \T\ heel/esposito - test with eyes open) - 0(Absent) 8. Sensory Loss (pinprick arms/legs/face) - 0(Normal) 9. Best Language: Aphasia (description/naming/reading) - 0(No aphasia) Initials: ms3 Signatures: Dispatcher [employer] EDMS Lilian, Michael, DO DO ms3 Sydnie Peraza, RN RN kb3 Monika Crook rv1 Ludivina Lin, RN RN me1 Deborah Wilks RN RN aa10 Corrections: (The following items were deleted from the chart) 10:19 10:19 Chest Single View+RAD.RAD.BRZ ordered. EDMS EDMS 11:42 11:42 PROTIME (+INR)+COAG.LAB.BRZ ordered. EDMS EDMS 11:42 11:42 PTT, ACTIVATED+COAG.LAB.BRZ ordered. EDMS EDMS 11:42 11:42 CT-STROKE BRAIN W/O CONTRAST+CT.RAD.BRZ ordered. EDMS EDMS 11:43 11:43 Neck Angio+CT.RAD.BRZ ordered. EDMS EDMS 14:45 12:35 Telemetry/MedSurg (Inpatient) ms3 kb3 14:45 12:35 ms3 kb3 10/06 22:41 02/04 14:45 [facility] ER HOLD kb3 rv1 10/06 22:41 02 14:45 ERHOLD- kb3 rv1
--- NOTE | 2024-10-05 12:36 | ER ---
Nurse's Notes [facility] Name: Bakari Baldwin Age: 68 yrs Sex: Male : 1955 Arrival Date: 10/05/2024 Time: 10:17 Bed 24 Private MD: Diagnosis: Other peripheral vertigo, right ear;Unspecified atrial fibrillation Presentation: 10/05 10:19 Chief complaint: EMS states: toned out for dizziness with diaphoresis while at the [facility] [place] dentist office. BP 151/105 per dentist and he was given nitro SL x1 by dentist. EMS established 20g to RAC and gave zofran 4 mg. Hx vertigo. Coronavirus screen: Vaccine status: Patient reports receiving the 2nd dose of the covid vaccine. Ebola Screen: No symptoms or risks identified at this time. Initial Sepsis Screen: Does the patient meet any 2 criteria? HR > 90 bpm. No. Patient's initial sepsis screen is negative. Does the patient have a suspected source of infection? No. Patient's initial sepsis screen is negative. Risk Assessment: Do you want to hurt yourself or someone else? Patient reports no desire to harm self or others. Onset of symptoms was October 05, 2024 at 09:30. 10:19 Method Of Arrival: EMS: [facility] [place] 10:19 Acuity: JOHANA 3 [facility] [place] 10:19 Care prior to arrival: Medication(s) given: zofran 4 mg, IV initiated. 20 GA, in the vt1 right antecubital area. Triage Assessment: 10:24 General: Appears in no apparent distress. well groomed, well developed, well nourished, [facility] [place] Behavior is calm, cooperative, appropriate for age. Pain: Denies pain. EENT: No signs and/or symptoms were reported regarding the EENT system. Neuro: Level of Consciousness is awake, alert, obeys commands, Oriented to person, place, time, situation, Appropriate for age Reports dizziness. Cardiovascular: Patient's skin is warm and dry. Respiratory: Airway is patent Respiratory effort is even, unlabored, Respiratory pattern is regular, symmetrical. GI: Reports nausea. : No signs and/or symptoms were reported regarding the genitourinary system. Derm: Skin is intact, is healthy with good turgor, Skin is pink, warm \T\ dry. Musculoskeletal: No signs and/or symptoms reported regarding the musculoskeletal system. Historical: - Allergies: 10:24 No Known Allergies; me1 - Home Meds: 19:14 allopurinol 100 mg Oral tab 1 tab once daily [Active]; levothyroxine 50 mcg tab 1 tab aa10 once daily [Active]; - PMHx: 10:24 Gout; Hyperlipidemia; Hypothyroidism; vertigo (Hypothyroidism); me1 - Immunization history:: Adult Immunizations up to date. - Infectious Disease History:: Denies. - Social history:: Smoking status: Patient/guardian denies using tobacco, but has a distant history of tobacco abuse. Screenin:26 [facility] ED Fall Risk Assessment (Adult) History of falling in the last 3 months, me1 including since admission No falls in past 3 months (0 pts) Confusion or Disorientation No (0 pts) Intoxicated or Sedated No (0 pts) Impaired Gait No (0 pts) Mobility Assist Device Used No (0 pt) Altered Elimination No (0 pt) Score/Fall Risk Level 0 - 2 = Low Risk Maintained a safe environment, Provided non-skid footwear, Hourly rounding (assess needs \T\ fall precautionary measures) done. Abuse screen: Denies threats or abuse. Nutritional screening: No deficits noted. Tuberculosis screening: No symptoms or risk factors identified. 10:45 Alexander Swallow Protocol Brief Cognitive Screen What is your name? Normal, Where are you me1 right now? Normal, What year is it? Normal. Oral Mechanism Examination Facial Symmetry: Normal, Motion: Normal, Lip Closure: Normal, Oral Mechanism Result: Normal. 3 oz Water Swallow Challenge: Pt able to drink all water without stopping, coughing, choking or throat clearing: Yes Result: PASS Notified: Michael Quintana DO. Assessment: 10:26 General: See triage assessment.. me1 12:06 Reassessment: Code stroke called 11:45. me1 19:14 Reassessment: Patient appears in no apparent distress at this time. No changes from aa10 previously documented assessment. Patient and/or family updated on plan of care and expected duration. Pain level reassessed. Patient is alert, oriented x 3, equal unlabored respirations, skin warm/dry/pink. Patient states feeling better. Vital Signs: 10:19 BP 121 / 74; Pulse 101; Resp 16; Temp 97.5; Pulse Ox 100% ; Weight 95.25 kg; Height 5 me1 ft. 10 in. ; 10:30 BP 113 / 77; Pulse 98; Resp 16; Pulse Ox 99% ; me1 11:00 BP 122 / 85; Pulse 99; Resp 16; Pulse Ox 99% ; me1 11:30 BP 129 / 85; Pulse 99; Resp 16; Pulse Ox 98% ; me1 12:00 BP 127 / 90; Pulse 101; Resp 17; Pulse Ox 97% ; me1 12:30 BP 134 / 87; Pulse 109; Resp 16; Pulse Ox 96% ; me1 13:00 BP 130 / 85; Pulse 108; Resp 16; Pulse Ox 97% ; me1 13:30 BP 139 / 87; Pulse 113; Resp 16; Pulse Ox 97% ; me1 14:00 BP 128 / 70; Pulse 113; Resp 16; Pulse Ox 98% ; me1 19:15 BP 141 / 93; Pulse 102; Resp 20; Temp 98.6; Pulse Ox 98% on R/A; aa10 10:19 Body Mass Index 30.13 (95.25 kg, 177.8 cm) me1 NIH Stroke Scale Scores: 10:26 NIHSS Score: 0 me1 11:43 NIHSS Score: 0 ms3 ED Course: 10:18 Patient arrived in ED. me1 10:19 Michael Quintana DO is Attending Physician. ms3 10:24 Triage completed. me1 10:24 Arm band placed on Patient placed in an exam room. me1 10:26 Patient has correct armband on for positive identification. Bed in low position. Call me1 light in reach. Side rails up X2. Provided Education on: POC. Verbalized understanding. Client placed on continuous cardiac and pulse oximetry monitoring. NIBP monitoring applied. conveyor monitor on. Pulse ox on. NIBP on. 10:26 No provider procedures requiring assistance completed. Maintain EMS IV. Dressing me1 intact. Good blood return noted. Site clean \T\ dry. Gauge \T\ site: 20g RAC. Flushed with 10 mL NS. 10:42 Ludivina Lin, MARYCRUZ is Primary Nurse. me1 10:53 Initial lab(s) drawn, by vt, sent to lab. Inserted saline lock: 22 gauge in left me1 antecubital area, using aseptic technique. IV discontinued, intact, bleeding controlled, No redness/swelling at site. Pressure dressing applied. 10:54 Basic Metabolic Panel Sent. me1 10:54 CBC with Diff Sent. me1 10:54 Magnesium Sent. me1 10:54 Troponin HS Sent. me1 11:03 XRAY Chest (1 view) In Process Unspecified. EDMS 11:03 Flu Sent. me1 12:01 CT Stroke Brain w/o Contrast In Process Unspecified. EDMS 12:02 CT Head Angio In Process Unspecified. EDMS 12:02 CT Neck Angio In Process Unspecified. EDMS 12:05 Protime (+inr) Sent. me1 12:05 Ptt, Activated Sent. me1 12:34 Nickolas Tesfaye is Hospitalizing Provider. ms3 02 17:25 IV discontinued, intact, bleeding controlled, No redness/swelling at site. Pressure ty dressing applied, IV had poor blood return and difficult to flush. 17:30 Inserted saline lock: 20 gauge in left forearm, using aseptic technique. Blood ty collected. Flushed with 10 mL NS. Administered Medications: 10/05 12:22 Drug: Meclizine PO 50 mg PO once Route: PO; me1 14:20 Follow up: Response: No adverse reaction; Marked relief of symptoms me1 12:41 Drug: Diazepam IM 5 mg IM once {Note: given IV to LAC per verbal from Dr Quintana.} Route: me1 IM; Site: Other; 14:20 Follow up: Response: No adverse reaction me1 Medication: 10:26 VIS not applicable for this client. me1 Outcome: 12:35 Decision to Hospitalize by Provider. ms3 23:51 Admitted to ER Hold. Please see [facility] for further documentation. lg3 23:51 Condition: stable 23:51 Instructed on the need for admit, 10/06 23:18 Admitted to Med/surg accompanied by tech, via wheelchair, with chart, Report called to linda Calloway Condition: stable Instructed on the need for admit, 23:19 Patient left the ED. cp4 NIH Stroke Scale - NIH Stroke Score Date: 10/05/2024 Time: 10:26 Total Score = 0 10. Dysarthria (speech clarity - read or repeat words) - 0(Normal) 11. Extinction and Inattention (visual/tactile/auditory/spatial/personal) - 0(No abnormality) 1a. Level of Consciousness (LOC) - 0(Alert) 1b. Level of Consciousness (LOC) (Month \T\ Age) - 0(Both) 1c. LOC Commands (Open \T\ Closes Eyes/Bench Chemist) - 0(Both) 2. Best Gaze (Lateral Gaze Paresis) - 0(Normal) 3. Visual Field Loss - 0(No visual loss) 4. Facial Palsy - 0(Normal) 5a. Left Arm: Motor (10-second hold) - 0(No drift) 5b. Right Arm: Motor (10-second hold) - 0(No drift) 6a. Left Leg: Motor (5-second hold - always test supine) - 0(No drift) 6b. Right Leg: Motor (5-second hold - always test supine) - 0(No drift) 7. Limb Ataxia (finger/nose \T\ heel/esposito - test with eyes open) - 0(Absent) 8. Sensory Loss (pinprick arms/legs/face) - 0(Normal) 9. Best Language: Aphasia (description/naming/reading) - 0(No aphasia) Initials: me1 NIH Stroke Scale - NIH Stroke Score Date: 10/05/2024 Time: 11:43 Total Score = 0 10. Dysarthria (speech clarity - read or repeat words) - 0(Normal) 11. Extinction and Inattention (visual/tactile/auditory/spatial/personal) - 0(No abnormality) 1a. Level of Consciousness (LOC) - 0(Alert) 1b. Level of Consciousness (LOC) (Month \T\ Age) - 0(Both) 1c. LOC Commands (Open \T\ Closes Eyes/Bench Chemist) - 0(Both) 2. Best Gaze (Lateral Gaze Paresis) - 0(Normal) 3. Visual Field Loss - 0(No visual loss) 4. Facial Palsy - 0(Normal) 5a. Left Arm: Motor (10-second hold) - 0(No drift) 5b. Right Arm: Motor (10-second hold) - 0(No drift) 6a. Left Leg: Motor (5-second hold - always test supine) - 0(No drift) 6b. Right Leg: Motor (5-second hold - always test supine) - 0(No drift) 7. Limb Ataxia (finger/nose \T\ heel/esposito - test with eyes open) - 0(Absent) 8. Sensory Loss (pinprick arms/legs/face) - 0(Normal) 9. Best Language: Aphasia (description/naming/reading) - 0(No aphasia) Initials: ms3 Signatures: Dispatcher [employer] Margaret Buckner RN RN lg3 Michael Quintana, DO DO ms3 Ludivina Lin RN RN me1 Jerrica Elliott cp4 Grzegorz Bennett Ayoku RN RN aa10 Corrections: (The following items were deleted from the chart) 10/05 12:05 11:03 Meclizine PO 50 mg PO me1 me1
--- NOTE | 2024-10-05 14:25 | P.HP ---
Certification for Inpatient Patient admitted to: Observation With expected LOS: <2 Midnights Patient will require the following post-hospital care: None Practitioner: I am a practitioner with admitting privileges, knowledge of patient current condition, hospital course, and medical plan of care. Services: Services provided to patient in accordance with Admission requirements found in Title 42 Section 412.3 of the Code of Federal Regulations Patient History Date of Service: 10/05/24 Reason for admission: New onset Afib History of Present Illness: Bakari Baldwin is a 68 year old male with PMHX HTN, HLD, Gout, veritgo, hypothyroidism who presents to the ED with vertigo but found to be in Afib. He reports going to the dentist at 9 am and walked from the waiting room to the procedure chair, then became dizzy with diaphoresis. He reports having veritgo in the past several years ago but has never been diagnosed with Afib, seizure, or stroke. He reports using drugs but did not mention specifics, he stopped smoking in 2005, and drinks 6-8 beers daily. On examination, HR 132, no chest pain, or diaphoresis, recently given valium and resting comfortably. Laboratory evaluation significant for sodium 135, glucose 163, left shift neutrophils 89.8, toxicology positive for THC. Bakari will be admitted to hospital service for further evaluation and treatment of vertigo and new onset A-fib Allergies No Known Allergies Allergy (Verified 11/04/19 15:48) Home Medications: Allopurinol 100 mg PO DAILY 11/04/19 Ascorbic Acid [Vitamin C] 2,000 mg PO DAILY 11/04/19 Atorvastatin Calcium [Lipitor] 20 mg PO BEDTIME 11/04/19 Levothyroxine [Synthroid] 50 mcg PO [id number] 11/04/19 Vitamin B Complex [B-Complex Vitamin] 1 cap PO DAILY 11/04/19 - Past Medical/Surgical History -: HLD -: Vertigo -: Gout -: Hypothyroidism - Social History Smoking Status: Former smoker Alcohol use: Yes CD- Drugs: Yes Review of Systems Other: Per HPI Physical Examination - Physical Exam General: Alert, In no apparent distress, Oriented x3 HEENT: Atraumatic, Normocephalic, PERRLA Neck: Supple, 2+ carotid pulse no bruit Respiratory: Clear to auscultation bilaterally, Normal air movement Cardiovascular: Normal pulses, Regular rate/rhythm, Normal S1 S2 Capillary refill: <2 Seconds Gastrointestinal: Normal bowel sounds, Soft and benign Musculoskeletal: No clubbing Integumentary: No rashes Neurological: Normal speech, Normal tone - Studies Laboratory Data (last 24 hrs) 10/05/24 10/05/24 10/05/24 12:05 10:51 10:51 WBC 10.40 Hgb 15.9 Hct 43.8 Plt Count 221 PT 10.9 INR 1.04 APTT 25.9 Sodium 135 L Potassium 4.0 BUN 13 Creatinine 1.10 Glucose 163 H Magnesium 1.7 Microbiology Data (last 24 hrs): 10/05/24 10:59 Nasopharnyx Influenza Type A Antigen Screen - Final 10/05/24 10:59 Nasopharnyx Influenza Type B Antigen Screen - Final Assessment and Plan - Plan Assessment and Plan Vertigo rule out CVA hypothyroidism -TSH/Free T4, lipid pending -MRI in the a.m. -CT head, CTA head and neck negative for acute findings -NIHSS 0 -aspirin New onset Afib -Continuous telemetry -Sotalol twice daily -Eliquis twice daily -Aspirin -Consult cardiology -Echo in a.m. Hyperglycemia -Serum glucose 163 Substance abuse -reports 6-8 beers daily -marijuana use -tox screen positive for marijuana DVT PPx Eliquis Full code LOS 24-hour OBS Discharge Plan: Home Plan to discharge in: 24 Hours - Advance Directives Does patient have a Living Will: No Does patient have a Durable POA for Healthcare: No
[2024-10-05] MEDS ORDERED: ACETAMINOPHEN 325 MG TABLET ONE (16:53)
[2024-10-05] MEDS: ACETAMINOPHEN 325 MG TABLET PO PRN (17:00)
[2024-10-05] MEDS ORDERED: MECLIZINE HCL 12.5 MG TAB PO PRN (17:00)
[2024-10-05] MEDS ORDERED: METOPROLOL TARTRATE 5 MG/5 ML INJ IV ONE (17:38)
[2024-10-05] MEDS: METOPROLOL TARTRATE 5 MG/5 ML INJ IV PRN (17:53)
[2024-10-05] MEDS: ASPIRIN EC 81 MG TAB PO SCH (18:09)
[2024-10-05] MEDS: SOTALOL HCL 80 MG TAB PO SCH (18:31)
[2024-10-05 18:38] LABS: Sqamous Epithelial <5 /HPF (None Seen); Urine Bacteria None Seen /HPF (<20); Urine Bilirubin NEGATIVE (Negative); Urine Blood Negative (Negative); Urine Clarity Clear (Clear); Urine Color Yellow (Yellow); Urine Culture Reflex Order NOT NEEDED; Urine Glucose NEGATIVE (Negative); Urine Ketones TRACE (Negative); Urine Micro Reflex YN NO BILL MICROSCOPIC; Urine Nitrite NEGATIVE (Negative); Urine Protein NEGATIVE (Negative); Urine RBC <5 /HPF (None Seen); Urine Urobilinogen Normal (Normal); Urine WBC <5 /HPF (<5); Urine Yeast (Budding) Trace /HPF (None Seen)
[2024-10-05 18:39] LABS: Urine Mucus Slight /HPF (None Seen)
[2024-10-05 18:46] LABS: Specific Gravity > 1.030 (1.005-1.030)
[2024-10-05 18:54] LABS: Barbiturates NEGATIVE (NEGATIVE); Benzodiazepines NEGATIVE (NEGATIVE); Cocaine NEGATIVE (NEGATIVE); METHAMPHETAM NEGATIVE (NEGATIVE); Methadone NEGATIVE (NEGATIVE); Opiates NEGATIVE (NEGATIVE); Phencyclidine NEGATIVE (NEGATIVE); THC Cannibis POSITIVE (NEGATIVE)
[2024-10-05] MEDS ORDERED: SOTALOL HCL 80 MG TAB ONE (19:06)
[2024-10-05] MEDS ORDERED: ASPIRIN EC 81 MG TAB PO ONE (19:06)
[2024-10-05] MEDS ORDERED: ENOXAPARIN 100 MG/ML SYR SQ SCH (21:00)
[2024-10-05] MEDS: APIXABAN 5 MG TABLET PO SCH (21:00)
[2024-10-05] MEDS ORDERED: METOPROLOL XL 25 MG TAB PO SCH (21:00)
--- NOTE | 2024-10-05 21:29 | RAD REPORT ---
EXAMINATION: MRI BRAIN WITHOUT CONTRAST CLINICAL INDICATION: Male, 68 years old. Vertigo TECHNIQUE: Multiplanar multisequence MR images of the brain were obtained without intravenous contras t. Unless otherwise specified, incidental findings do not require dedicated imaging follow-up. [id number]. COMPARISON: 12/15/2020 FINDINGS: INTRACRANIAL: No acute infarct identified. No significant mass effect or midline shift.No hydrocepha bhavna. Mild chronic small vessel ischemic changes.Mild cerebral atrophy. VASCULATURE: Normal signal voids in the larger intracranial arteries and dural venous sinuses. SINUSES: The paranasal sinuses are clear.No mastoid effusions. BONE: The marrow signal pattern is within normal limits. IMPRESSION: No acute intracranial abnormality. Specifically, no evidence of acute infarct.
[2024-10-05] MEDS ORDERED: APIXABAN 5 MG TABLET ONE (21:52)
[2024-10-06 01:06] VITALS: BMI 29.9
[2024-10-06] MEDS ORDERED: METOPROLOL TARTRATE 5 MG/5 ML INJ IV ONE (02:17)
[2024-10-06 04:32] LABS: Red Cell Distribution Width 12.9 % (12.1-15.2)
[2024-10-06 04:39] LABS: Absolute Lymphocytes (CBC) 1.1 K/uL (0.7-4.9); Absolute Neutrophil 9.1 K/uL (1.8-8.0); Basophils % 0.2 % (0-1.3); Eosinophils % 0.2 % (0-4.4); Hematocrit 45.7 % (39.6-49.0); Hemoglobin 15.8 g/dL (13.6-17.9); Lymphocytes % 9.6 % (15.3-44.8); MCH 33.6 pg (27.0-35.0); MCHC 34.6 g/dL (32.0-36.0); MCV 96.9 fL (80-100); MPV 8.2 fL (7.6-11.3); Monocytes % 9.1 % (3.3-12.3); Neutrophils % 80.9 % (41.7-73.7); Nucleated Red Blood Cells % 0.1 % (0-0); Platelets 231 thou/uL (152-406); RBC Red Blood Cell Count 4.72 M/uL (4.33-5.43)
[2024-10-06 04:52] LABS: Anion Gap 9.7 mEq/L (5.0-15.0); Phosphorus 3.1 mg/dL (2.5-4.9); Thyroid Stimulating Hormone 1.13 uIU/mL (0.358-3.740)
[2024-10-06 04:59] LABS: Magnesium 1.9 mg/dL (1.6-2.4); Potassium 3.7 mEq/L (3.5-5.1)
[2024-10-06] MEDS ORDERED: APIXABAN 5 MG TABLET ONE ×2 (08:00→21:07)
[2024-10-06] MEDS ORDERED: SOTALOL HCL 80 MG TAB ONE ×2 (08:00→18:11)
[2024-10-06] MEDS ORDERED: ASPIRIN EC 81 MG TAB PO ONE (08:00)
[2024-10-06] MEDS: PANTOPRAZOLE 40MG TABLET PO ONE (09:00)
[2024-10-06] MEDS: LEVOTHYROXINE SOD 0.05 MG TABLET PO SCH (09:00)
[2024-10-06] MEDS: allopurinoL 100 MG TAB PO SCH (09:00)
[2024-10-06] MEDS: EZETIMIBE 10 MG TAB PO SCH (09:00)
--- NOTE | 2024-10-06 09:24 | P.CNS ---
Date of Consult: 10/06/24 Chief Complaint: New onset Afib History of Present Illness: Patient with PMH of HTN, ETOH daily, presented with dizziness, weakness, and palpitations, denies chest pain, no SOB, no SANTOYO, no syncope. Allergies No Known Allergies Allergy (Verified 11/04/19 15:48) Home medications list reviewed: Yes Home Medications: Allopurinol 100 mg PO DAILY 11/04/19 Ascorbic Acid [Vitamin C] 2,000 mg PO DAILY 11/04/19 Atorvastatin Calcium [Lipitor] 20 mg PO BEDTIME 11/04/19 Levothyroxine [Synthroid] 50 mcg PO [id number] 11/04/19 Vitamin B Complex [B-Complex Vitamin] 1 cap PO DAILY 11/04/19 - Past Medical/Surgical History -: HLD -: Vertigo -: Gout -: Hypothyroidism - Social History Alcohol use: Yes CD- Drugs: Yes Review of Systems 10-point ROS is otherwise unremarkable Physical Examination Temp Pulse Resp BP Pulse Ox 97.5 F 94 H 18 125/96 H 97 10/06/24 08:00 10/06/24 08:00 10/06/24 08:00 10/06/24 08:00 10/06/24 08:00 General: Alert, In no apparent distress HEENT: Atraumatic, PERRLA, Mucous membr. moist/pink, EOMI, Sclerae nonicteric Neck: Supple, 2+ carotid pulse no bruit, No LAD, Without JVD or thyroid abnormality Respiratory: Clear to auscultation bilaterally, Normal air movement Cardiovascular: Irregular heart rate/rhythm Gastrointestinal: Normal bowel sounds, No tenderness Musculoskeletal: No tenderness Integumentary: No rashes Neurological: Normal gait, Normal speech, Normal tone, Normal affect Lymphatics: No axilla or inguinal lymphadenopathy Laboratory Data (last 24 hrs) 10/05/24 10/05/24 10/05/24 12:05 10:51 10:51 WBC 10.40 Hgb 15.9 Hct 43.8 Plt Count 221 PT 10.9 INR 1.04 APTT 25.9 Sodium 135 L Potassium 4.0 BUN 13 Creatinine 1.10 Glucose 163 H Magnesium 1.7 - Problems (1) Atrial fibrillation Current Visit: Yes Status: Acute Plan: NPO for possible LEELEE DCCV later today. continue Sotalol 80 mg po BID Continue Eliquis 5 mg po BID (2) HTN (hypertension) Current Visit: Yes Status: Acute Plan: continue Norvasc. get Echo
[2024-10-06] MEDS: LORAZEPAM 1 MG TABLET PO ONE (09:35)
--- NOTE | 2024-10-06 11:31 | EKG ---
Test Date: 2024-10-05 Test Time: 11:38:30 Cut Off Saw Operator Metal: MEASUREMENT RESULTS: Intervals: Rate: 94 [place]: QRSD: 74 QT: 360 QTc: 450 [place]: P: MO: QRS: 6 T: 55 INTERPRETIVE STATEMENTS: Atrial fibrillation Cannot rule out Anterior infarct, age undetermined Abnormal ECG Compared to ECG 12/15/2020 10:32:46 Sinus rhythm no longer present Myocardial infarct finding still present Electronically Signed On 10-06-24 11:29:40 STAFFING ADMINISTRATOR by Dalton Rodriguez
[2024-10-06] MEDS ORDERED: PANTOPRAZOLE 40MG TABLET PO ONE (13:54)
[2024-10-06] MEDS ORDERED: LORAZEPAM 1 MG TABLET PO PRN (19:05)
[2024-10-06] MEDS ORDERED: GUAIFENESIN 600 MG SA TAB PO PRN (19:10)
--- NOTE | 2024-10-06 22:28 | P.PN ---
Date of Service: 10/06/24 Subjective Awake and eating breakfast Reported episode overnight involving sustained outbursts with Awaiting cardioversion in the AM ROS 10 point ROS as noted above, otherwise negative Physical Exam General: Alert and Oriented x3, NAD HEENT: Atraumatic, Normocephalic, PERRLA Neck: Supple, 2+ carotid pulse no bruit Respiratory: Clear to auscultation bilaterally, Normal air movement Cardiovascular: Normal pulses, Afib with mild tachycardia, Normal S1 S2 Capillary refill: <2 Seconds Gastrointestinal: Normal bowel sounds, Soft and benign opn palpation Musculoskeletal: No clubbing Integumentary: No rashes Neurological: Normal speech, Normal tone Vitals Reviewed Problem list Vertigo ruled out CVA hypothyroidism New onset Afib Hyperglycemia Substance abuse Assessment and Plan Vertigo ruled out CVA hypothyroidism -TSH/Free T4, lipid pending -MRI brain negative for acute findings -CT head, CTA head and neck negative for acute findings -NIHSS 0 -aspirin New onset Afib -Continuous telemetry -Sotalol twice daily -Eliquis twice daily -Aspirin -Consult cardiology -Echo results pending -EKG after third dose of sotalol- still Afib -NPO at midnight for LEELEE cardioversion Hyperglycemia -Serum glucose 137 -Continue to monitor in AM labs Substance abuse -reports 6-8 beers daily -marijuana use -tox screen positive for marijuana -Ativan PRN DVT PPx Eliquis Full code LOS 24-hour OBS Discharge Plan: Home Plan to discharge in: 24 Hours
[2024-10-07 04:54] LABS: Absolute Eosinophils 0.1 K/uL (0-0.5); Absolute Lymphocytes (CBC) 1.5 K/uL (0.7-4.9); Absolute Neutrophil 5.1 K/uL (1.8-8.0); Basophils % 0.6 % (0-1.3); Eosinophils % 1.2 % (0-4.4); Hematocrit 42.4 % (39.6-49.0); Hemoglobin 15.1 g/dL (13.6-17.9); MCH 33.8 pg (27.0-35.0); MCHC 35.6 g/dL (32.0-36.0); MCV 95.1 fL (80-100); MPV 8.9 fL (7.6-11.3); Monocytes % 13.3 % (3.3-12.3); Neutrophils % 65.9 % (41.7-73.7); Nucleated Red Blood Cells % 0.1 % (0-0); Platelets 189 thou/uL (152-406); RBC Red Blood Cell Count 4.45 M/uL (4.33-5.43); Red Cell Distribution Width 13.3 % (12.1-15.2)
[2024-10-07 05:19] LABS: Anion Gap 8.6 mEq/L (5.0-15.0); Magnesium 1.9 mg/dL (1.6-2.4); Phosphorus 3.4 mg/dL (2.5-4.9); Potassium 3.6 mEq/L (3.5-5.1)
[2024-10-07] MEDS: NA CHLORIDE 0.9% 500 ML ONE (09:27)
[2024-10-07] MEDS ORDERED: LIDOCAINE 1% MPF 5 ML VIAL ONE (09:57)
[2024-10-07] MEDS ORDERED: propofoL 200 MG/20 ML VIAL IV ONE (09:57)
[2024-10-07 09:58] VITALS: TEMP 99.2
[2024-10-07 10:22] VITALS: BP 111/65
--- NOTE | 2024-10-07 10:50 | P.PN ---
Subjective Date of Service: 10/07/24 Chief Complaint: New onset Afib Subjective: No new changes, No C/O voiced, Tolerating diet, Ambulating, Improving Review of Systems 10-point ROS is otherwise unremarkable Physical Examination - Vital Signs Temperature: 99.2 F Blood Pressure: 111/65 Pulse: 63 Respirations: 15 Pulse Ox (%): 96 - Physical Exam General: Alert, In no apparent distress HEENT: Atraumatic, PERRLA, EOMI Neck: Supple, JVD not distended Respiratory: Clear to auscultation bilaterally, Normal air movement Cardiovascular: Regular rate/rhythm, Normal S1 S2 Gastrointestinal: Normal bowel sounds, No tenderness Musculoskeletal: No tenderness Integumentary: No rashes Neurological: Normal speech, Normal tone, Normal affect Lymphatics: No axilla or inguinal lymphadenopathy - Studies Medications List Reviewed: Yes Assessment And Plan - Current Problems (Diagnosis) (1) Atrial fibrillation Current Visit: Yes Status: Acute Plan: Patient is s/p LEELEE. continue Sotalol 80 mg po BID Continue Eliquis 5 mg po BID (2) HTN (hypertension) Current Visit: Yes Status: Acute Plan: continue Norvasc. Echo is normal
[2024-10-07 11:18] VITALS: O2SAT 94
--- NOTE | 2024-10-07 11:19 | TEE ---
TRANSESOPHAGEAL ECHOCARDIOGRAM REPORT CARDIOLOGY DEPARTMENT DATE OF STUDY: 10/07/2024 HEIGHT: 5'10" WEIGHT: 209 lbs DIAGNOSIS: ATRIAL FIBRILLATION TECHNICIANS AND TRADES WORKERS COMMENTS: LEELEE CARDIAC HISTORY: CATHERIZATION: SURGERY: PROSTHETIC VALVE: PACEMAKER: 2 DIMENSIONAL ASSESSMENT: RIGHT ATRIUM: LEFT ATRIUM: RIGHT VENTRICLE: LEFT VENTRICLE: TRICUSPID VALVE: MITRAL VALVE: PULMONIC VALVE: AORTIC VALVE: PERICARDIAL EFFUSION: AORTIC ROOT: EJECTION FRACTION: LEFT VENTRICULAR WALL MOTION: DOPPLER/COLOR FLOW: COMMENTS: 1. NORMAL LEFT ATRIAL APPENDAGE, NO CLOTS TECHNOLOGIST: DEIDRE TORRES
--- NOTE | 2024-10-07 11:20 | OP ---
Date of Procedure: 10/07/2024 Surgeon: Dalton Rodriguez Procedure Performed: Synchronized transesophageal echocardiogram cardioversion. Indication For Procedure: Atrial fibrillation. Complications: None. Estimated Blood Loss: None. Sedation: Done by Anesthesia team. Description Of Procedure: After risks, benefits, and alternatives were explained to the patient, the patient agreed to proceed with the procedure and signed informed consent. The patient was brought b ack to the OR. Time-out was performed. Sedation was administered by Anesthesia Team. Next, LEELEE pro be was inserted, images obtained, and the LEELEE probe was out. Synchronized cardioversion was done wit h 200 joules. The patient stayed in atrial fibrillation, so another synchronized cardioversion was d one with 250 joules. The patient was converted back into sinus rhythm. The patient was moved back t o recovery in stable condition. Assessment And Plan: Atrial fibrillation, status post transesophageal echocardiogram cardioversion a fter 2 shocks. Plan is to continue sotalol 80 b.i.d. and continue Eliquis 5 mg b.i.d. Return to [facility] in 2 weeks. ROXANA/NILSA Voice ID: [id number] Report ID: [id number]
--- NOTE | 2024-10-07 11:27 | EKG ---
Test Date: 2024-10-06 Test Time: 18:49:45 Surgical Lead: PH MEASUREMENT RESULTS: Intervals: Rate: 100 IL: QRSD: 78 QT: 302 QTc: 389 [place]: P: IL: QRS: 6 T: 52 INTERPRETIVE STATEMENTS: Atrial fibrillation Abnormal ECG Compared to ECG 10/05/2024 11:38:30 Myocardial infarct finding no longer present Electronically Signed On 10-07-24 11:24:55 PREASSEMBLER AND INSPECTOR by Dalton Rodriguez
--- NOTE | 2024-10-07 11:32 | ECHO ---
HEIGHT: 5 ft 10 in WEIGHT: 209 lb 0 oz DATE OF STUDY: 10/06/[address]: Tracy Cifuentes NP 2-DIMENSIONAL: YES M.MODE: YES DOPPLER: YES COLOR FLOW: YES TDS: PORTABLE: YES DEFINITY: BUBBLE STUDY: DIAGNOSIS: NEW ONSET ATRIAL FIBRILLATION CARDIAC HISTORY: CATHERIZATION: SURGERY: PROSTHETIC VALVE: PACEMAKER: MEASUREMENTS (cm) DIASTOLIC (NORMALS) SYSTOLIC (NORMALS) IVSd 0.9 (0.6-1.2) LA Diam 3.7 (1.9-4.0) LVEF 60-65% LVIDd 4.6 (3.5-5.7) LVIDs 2.8 (2.0-3.5) %FS 39% LVPWd 1.0 (0.6-1.2) Ao Diam 2.7 (2.0-3.7) 2 DIMENSIONAL ASSESSMENT: RIGHT ATRIUM: NORMAL LEFT ATRIUM: NORMAL RIGHT VENTRICLE: NORMAL LEFT VENTRICLE: NORMAL TRICUSPID VALVE: TRACE TRICUSPID REGURGITATION MITRAL VALVE: MILD MITRAL REGURGITATION PULMONIC VALVE: NORMAL AORTIC VALVE: TRACE AORTIC REGURGITATION PERICARDIAL EFFUSION: NONE AORTIC ROOT: NORMAL LEFT VENTRICULAR WALL MOTION: NORMAL DOPPLER/COLOR FLOW: NORMAL COMMENTS: 1. NORMAL LEFT VENTRICULAR SYSTOLIC FUNCTION, EJECTION FRACTION 60-65%, NORMAL WALL MOTION 2. NORMAL DIASTOLIC FUNCTION 3. MILD MITRAL REGURGITATION TECHNOLOGIST: EFREN MUNOZ
--- NOTE | 2024-10-07 14:11 | P.DS ---
Admission Date: 10/07/24 Discharge Date: 10/07/24 Disposition: ROUTINE DISCHARGE Discharge Condition: GOOD Reason for Admission: New onset Afib Brief History of Present Illness: Diagnosis Vertigo ruled out CVA hypothyroidism New onset Afib Hyperglycemia Substance abuse HPI 10/05/2024 Bakari Baldwin is a 68 year old male with PMHX HTN, HLD, Gout, veritgo, hypothyroidism who presents to the ED with vertigo but found to be in Afib. He reports going to the dentist at 9 am and walked from the waiting room to the procedure chair, then became dizzy with diaphoresis. He reports having veritgo in the past several years ago but has never been diagnosed with Afib, seizure, or stroke. He reports using drugs but did not mention specifics, he stopped smoking in 2005, and drinks 6-8 beers daily. On examination, HR 132, no chest pain, or diaphoresis, recently given valium and resting comfortably. Laboratory evaluation significant for sodium 135, glucose 163, left shift neutrophils 89.8, toxicology positive for THC. Bakari will be admitted to hospital service for further evaluation and treatment of vertigo and new onset A-fib Hospital Course: Patient was admitted and treated for the following diagnosis Vertigo ruled out CVA hypothyroidism -TSH/Free T4 WNL, Cholesterol/triglycerides mild elevation -MRI brain negative for acute findings -CT head, CTA head and neck negative for acute findings -NIHSS 0 -Continued home medication New onset Afib -Continuous telemetry- Changed to NSR -Tolerated Sotalol and Eliquis twice daily and Aspirin daily- Will continue at discharge -Consult cardiology- LEELEE cardioversion successful -Echo reports Normal EF, trace aortic and tricuspid regurgitation, mild mitral regurgitation Hyperglycemia -Serum glucose normalized Substance abuse -reports 6-8 beers daily -marijuana use -tox screen positive for marijuana On 10/07/2024, Bakari was seen on morning rounds and deemed medically stable for discharge. Bakari was discharged with instructions to schedule follow-up appointments with all along. Bakari was provided prescriptions for Meclizine, Sotalol, Eliquis, Lipitor, Zetia. Physical Exam General: AAO x3, NAD, calm and cooperative Neck: Supple, 2+ carotid pulse no bruit Respiratory: Clear to auscultation bilaterally, Normal air movement Cardiovascular: Normal sinus rhythm, Normal S1 S2 present Capillary refill: <2 Seconds Gastrointestinal: Normal active bowel sounds, Soft on palpation Musculoskeletal: No clubbing Integumentary: No rashes Neurological: Normal speech, Normal tone Vital Signs/Physical Exam: Temp Pulse Resp BP Pulse Ox 99.2 F 63 15 111/65 96 10/07/24 10:49 10/07/24 10:49 10/07/24 10:49 10/07/24 10:49 10/07/24 10:49 Laboratory Data at Discharge: WBC 7.70 thou/uL (4.3-10.9) 10/07/24 04:02 Hgb 15.1 g/dL (13.6-17.9) 10/07/24 04:02 Hct 42.4 % (39.6-49.0) 10/07/24 04:02 Plt Count 189 thou/uL (152-406) 10/07/24 04:02 PT 10.9 SECONDS (9.4-12.5) 10/05/24 12:05 INR 1.04 10/05/24 12:05 APTT 25.9 SECONDS (24.3-36.9) 10/05/24 12:05 Sodium 137 mEq/L (136-145) 10/07/24 04:02 Potassium 3.6 mEq/L (3.5-5.1) 10/07/24 04:02 BUN 12 mg/dL (7-18) 10/07/24 04:02 Creatinine 1.05 mg/dL (0.70-1.30) 10/07/24 04:02 Glucose 101 mg/dL (74-106) 10/07/24 04:02 Phosphorus 3.4 mg/dL (2.5-4.9) 10/07/24 04:02 Magnesium 1.9 mg/dL (1.6-2.4) 10/07/24 04:02 Triglycerides 180 mg/dL (<150) H 10/06/24 04:08 Cholesterol 223 mg/dL (<200) H 10/06/24 04:08 HDL Cholesterol 62 mg/dL (40-60) H 10/06/24 04:08 Cholesterol/HDL Ratio 3.60 10/06/24 04:08 Home Medications: Allopurinol 100 mg PO DAILY 11/04/19 Ascorbic Acid [Vitamin C*] 2,000 mg PO DAILY 11/04/19 Levothyroxine [Synthroid*] 50 mcg PO [id number] 11/04/19 Vitamin B Complex [Vitamin B Complex*] 1 cap PO DAILY 11/04/19 Apixaban [Eliquis] 5 mg PO BID #60 tab 10/06/24 Atorvastatin Calcium [Lipitor] 40 mg PO BEDTIME #30 tab 10/06/24 Ezetimibe [Zetia*] 10 mg PO DAILY tab 10/06/24 Meclizine HCl [Antivert*] 25 mg PO Q6H PRN #30 tab 10/06/24 Sotalol HCl [Betapace*] 80 mg PO BID 6AM 6PM #60 tab 10/06/24 New Medications: Meclizine HCl [Antivert*] 25 mg PO Q6H PRN #30 tab PRN Reason: Dizziness Sotalol HCl [Betapace*] 80 mg PO BID 6AM 6PM #60 tab Apixaban [Eliquis] 5 mg PO BID #60 tab Atorvastatin Calcium [Lipitor] 40 mg PO BEDTIME #30 tab Physician Discharge Instructions: 1. Please call and schedule a follow-up appointment with your PCP in 3-5 days - Please follow-up with your PCP for medication refills/adjustments 2. Please call and schedule a follow-up appointment with Dr. Rodriguez in 1 week 3. Continue heart healthy diet 4. activity restrictions do not lift greater than 10 pounds 5. Return to the ED if symptoms worsen New medications Sotalol 80 mg twice daily Meclizine 25 mg every 6 hours Zetia 10 mg daily Lipitor 40 mg daily Eliquis 5 mg twice daily Diet: AHA Activity: No lifting more than 10 lbs Followup: Nya Serna PAC [Primary Care Provider] - 1 Week Dalton Rodriguez MD [ACTIVE - CAN ADMIT] - 1 Week
[2024-10-07] MEDS ORDERED: ATORVASTATIN 40 MG TAB PO SCH (21:00)
--- NOTE | 2024-10-08 13:42 | EKG ---
Test Date: 2024-10-07 Test Time: 11:22:16 Biomass Plant Technician: TESSIE MEASUREMENT RESULTS: Intervals: Rate: 61 AL: 168 QRSD: 80 QT: 444 QTc: 446 [place]: P: 66 AL: 168 QRS: 24 T: 73 INTERPRETIVE STATEMENTS: Normal sinus rhythm Septal infarct, age undetermined Abnormal ECG Compared to ECG 10/06/2024 18:49:45 Myocardial infarct finding now present Atrial fibrillation no longer present Electronically Signed On 10-08-24 13:38:52 JOB PRINTER by Giovanni Ochoa
--- NOTE | 2024-10-12 12:57 | EKG ---
Test Date: 2024-10-06 Test Time: 22:27:09 Brand Inspector: TIKA MEASUREMENT RESULTS: Intervals: Rate: 99 AL: QRSD: 84 QT: 346 QTc: 444 [place]: P: AL: QRS: 83 T: 11 INTERPRETIVE STATEMENTS: Atrial fibrillation Septal infarct, age undetermined Abnormal ECG Compared to ECG 10/06/2024 18:49:45 Myocardial infarct finding now present Electronically Signed On 10-12-24 12:48:48 ROLLED GOLD PLATER by Dalton Rodriguez
== END 2024-10-07 14:50 | disposition home or self-care (01) | DRG 310 ==
LOC: ER 10:17 → ERHOLD 14:10 → 2ND 10-06 22:49 → OBSVTOIN 10-07 11:59
PROVIDERS: ADMIT Internal Medicine; ATTEND Internal Medicine
PROC: B24BZZ4 Ultrasonography of Heart with Aorta, Transesophageal (ICD-10-PCS; principal; 2024-10-07)
PROC: 5A2204Z Restoration of Cardiac Rhythm, Single (ICD-10-PCS; 2024-10-07)
DX: I48.91 Unspecified atrial fibrillation (principal); I10 Essential (primary) hypertension; E03.9 Hypothyroidism, unspecified; E78.5 Hyperlipidemia, unspecified; M10.9 Gout, unspecified; H81.391 Other peripheral vertigo, right ear; R73.9 Hyperglycemia, unspecified; Z79.890 Hormone replacement therapy; Z79.899 Other long term (current) drug therapy; Z87.891 Personal history of nicotine dependence
CPT/HCPCS: 01922; 36415; 70450; 70496; 70498; 70551; 71045; 80048; 80061; 80307; 81001; 82565; 83735; 84100; 84439; 84443; 84484; 85025; 85610; 85730; 87804; 92960; 93005; 93306; 93312; 96372; 99285; G0378; J2003; J2550; J2704; J3360; J7040; J8597; Q9967